=== PATIENT | male | born 2000 | race Caucasian/White ===

== ENCOUNTER → 2022-09-13 | Emergency (ER) | payer MEDICAID ==
[~2022-09-13] VITALS: Ht 185.4 cm; Wt 115.0 kg
[2022-09-13 15:43] VITALS: BP 116/71
== END | disposition home or self-care (01) ==
LOC: ER 15:41
DX: H61.23 Impacted cerumen, bilateral (principal)
CPT/HCPCS: 69209; 69210; 99284